=== PATIENT | male | born 1965 | race Caucasian/White ===

== ENCOUNTER 2016-09-30 10:47 | Emergency (ER) | payer OTHER ==
[~2016-09-30] VITALS: Ht 180.3 cm; Wt 181.8 kg
[2016-09-30] MEDS ORDERED: GLIMEPIRIDE4 MG PO (11:24)
[2016-09-30] MEDS ORDERED: LISINOPRIL20 MG PO (11:24)
[2016-09-30] MEDS ORDERED: LOVASTATIN20 MG PO (11:24)
[2016-09-30] MEDS ORDERED: METFORMIN HCL500 M4 PO (11:25)
[2016-09-30] MEDS ORDERED: HYDROCHLOROTHIA25 MG PO (11:26)
[2016-09-30] MEDS ORDERED: VITAMIN D31000 UNIT PO (11:26)
[2016-09-30] MEDS ORDERED: VITAMIN B122500 MCG PO (11:26)
[2016-09-30 12:20] LABS: HEMATOCRIT 39.4 % (38.0-50.0); MCH 29.7 PG (29.0-34.0); MCHC 33.2 G/DL (30.0-36.0); MCV 89.3 FL (86-99); MEAN PLAT.VOLUME 9.5 uM^3 (9.0-12.4); PLATELET COUNT 270 K/uL (156-360); RBC DIS.WIDTH-CV 13.6 % (11.8-14.6); RBC DIS.WIDTH-SD 44.7 % (39-53); RED BLOOD COUNT 4.41 M/uL (4.00-5.50)
[2016-09-30 12:33] LABS: CHLORIDE 102 mEq/L (99-109); POTASSIUM 4.6 mEq/L (3.7-5.4); SODIUM 136 mEq/L (136-147)
[2016-09-30 12:35] LABS: GLUCOSE 112 mg/dL (70-99)
[2016-09-30 12:36] LABS: ANION GAP 9 MEQ/L (2-14)
[2016-09-30 12:37] LABS: TOTAL BILIRUBIN 0.6 mg/dL (0.0-1.0)
[2016-09-30 12:38] LABS: ALKALINE PHOSPHATASE 87 IU/L (3-129); GFR ESTIMATE (CALCULATED) 53 mL/min/
[2016-09-30 12:40] LABS: UREA NITROGEN (BUN) 22 mg/dL (9-23)
[2016-09-30 12:42] LABS: LIPASE 14 U/L (1.0-51.0)
[2016-09-30] MEDS ORDERED: ZOFRAN ODT4 MG PO (14:18)
[2016-09-30 14:45] LABS: ADD MIUA? YES; BILIRUBIN NEGATIVE; BLOOD NEGATIVE; COLOR YELLOW ((YELLOW)); GLUCOSE (STRIP) NEGATIVE; KETONES NEGATIVE; LEUKOCYTES LARGE; NITRITE NEGATIVE; PROTEIN (STRIP) NEGATIVE; SPECIFIC GRAVITY 1.026 (1.000-1.030); UROBILINOGEN 0.2 MG/DL (0.2-1.0)
[2016-09-30 14:49] VITALS: BP 107/80
[2016-09-30 15:01] LABS: CASTS PRESENT /LPF; EPITHELIAL CELLS 3+ /HPF; MUCUS NONE SEEN /LPF
[2016-09-30 15:02] LABS: BACTERIA 4+ /HPF; RED BLOOD CELLS NONE SEEN /HPF (0-5); UCUL ADDED? YES; WHITE BLOOD CELLS 40-50 /HPF (0-5)
== END 2016-09-30 14:51 | disposition home or self-care (01) ==
LOC: EME 10:47
DX: K29.70 Gastritis, unspecified, without bleeding (principal); E11.9 Type 2 diabetes mellitus without complications; I10 Essential (primary) hypertension; Z98.84 Bariatric surgery status
CPT/HCPCS: 71020; 74177; 80053; 81003; 83690; 85027; 87086; 99281; 99284; J7030

== ENCOUNTER → 2016-11-19 | Outpatient (CLI) | payer OTHER ==
[~2016-11-19] VITALS: Ht 180.3 cm; Wt 175.0 kg
[~2016-11-19] MED LIST: GLIMEPIRIDE4 MG PO; HYDROCHLOROTHIA25 MG PO; LISINOPRIL20 MG PO; LOVASTATIN20 MG PO; METFORMIN HCL500 M4 PO; VITAMIN B122500 MCG PO; VITAMIN D31000 UNIT PO; ZOFRAN ODT4 MG PO
[2016-11-19 14:07] LABS: POINT-OF-CARE METER ID UU14174212
== END | disposition home or self-care (01) ==
LOC: AMB 13:28
PROVIDERS: Internal Medicine Gastroenterology
PROC: 0DJ08ZZ Inspection of Upper Intestinal Tract, Via Natural or Artificial Opening Endoscopic (ICD-10-PCS; principal; 2016-11-19)
DX: K25.9 Gastric ulcer, unspecified as acute or chronic, without hemorrhage or perforation (principal); K44.9 Diaphragmatic hernia without obstruction or gangrene; Z98.84 Bariatric surgery status; E11.9 Type 2 diabetes mellitus without complications; M10.9 Gout, unspecified; E78.5 Hyperlipidemia, unspecified; I10 Essential (primary) hypertension; E66.9 Obesity, unspecified; Z88.6 Allergy status to analgesic agent; Z79.84 Long term (current) use of oral hypoglycemic drugs
CPT/HCPCS: 82948; 93005

== ENCOUNTER 2017-03-01 09:57 | Emergency (ER) | payer OTHER ==
[~2017-03-01] VITALS: Ht 180.3 cm; Wt 177.2 kg
[2017-03-01 12:28] VITALS: BP 129/87
== END 2017-03-01 12:31 | disposition home or self-care (01) ==
LOC: EME 09:57
DX: E11.40 Type 2 diabetes mellitus with diabetic neuropathy, unspecified (principal); M79.671 Pain in right foot; M79.672 Pain in left foot; I10 Essential (primary) hypertension; E66.01 Morbid (severe) obesity due to excess calories; Z68.43 Body mass index [BMI] 50.0-59.9, adult; Z98.84 Bariatric surgery status; Z79.84 Long term (current) use of oral hypoglycemic drugs
CPT/HCPCS: 73610; 99281; 99284